=== PATIENT | female | born 1980 | race Caucasian/White ===

== ENCOUNTER 2018-11-11 09:14 | Emergency (ER) | payer MEDICAID ==
[~2018-11-11] VITALS: Ht 180.3 cm; Wt 101.3 kg
[2018-11-11 09:25] VITALS: Ht 180.3 cm; Wt 101.3 kg
[2018-11-11 10:22] VITALS: BP 91/75
== END 2018-11-11 10:23 | disposition home or self-care (01) ==
LOC: ED 09:14
DX: L02.211 Cutaneous abscess of abdominal wall (principal); K13.0 Diseases of lips; F17.210 Nicotine dependence, cigarettes, uncomplicated; Z98.890 Other specified postprocedural states
CPT/HCPCS: 99406

== ENCOUNTER 2020-06-15 02:09 | Emergency (ER) | payer MEDICAID ==
[~2020-06-15] VITALS: Ht 177.8 cm; Wt 106.6 kg
[2020-06-15 02:18] VITALS: BP 158/75; Ht 177.8 cm; Wt 106.6 kg
== END 2020-06-15 03:22 | disposition left against medical advice (07) ==
LOC: ED 02:09
DX: Z53.21 Procedure and treatment not carried out due to patient leaving prior to being seen by health care provider (principal)

== ENCOUNTER 2020-06-15 04:54 | Emergency (ER) | payer MEDICAID ==
[~2020-06-15] VITALS: Ht 177.8 cm; Wt 128.8 kg
[2020-06-15 05:06] VITALS: Ht 177.8 cm; Wt 128.8 kg
[2020-06-15 06:15] VITALS: BP 148/100
== END 2020-06-15 06:15 | disposition home or self-care (01) ==
LOC: ED 04:54
DX: L03.317 Cellulitis of buttock (principal); L02.31 Cutaneous abscess of buttock; Z98.890 Other specified postprocedural states
CPT/HCPCS: J2001